=== PATIENT | female | born 1980 | race African-American/Black ===

== ENCOUNTER 2019-03-15 23:02 | Emergency (ER) | payer MEDICAID ==
[~2019-03-15] VITALS: Ht 160 cm; Wt 81.6 kg
[2019-03-15 23:28] VITALS: BP 128/78
== END 2019-03-16 03:44 | disposition left against medical advice (07) ==
LOC: ER 23:08
DX: L60.0 Ingrowing nail (principal); Z53.21 Procedure and treatment not carried out due to patient leaving prior to being seen by health care provider